=== PATIENT | female | born 1950 | race African-American/Black ===

== ENCOUNTER → 2017-02-14 | Outpatient (CLI) | payer OTHER ==
--- NOTE | ~2017-02-14 | MY29 ---
[facility] A Service of [facility] RADIOLOGY TEXT RESULTS PATIENT: ROGERIO MURPHY LOCATION: [facility] : 52 UNIT #: [id number] AGE: [address]: RIANA LEAVITT APRN SEX: F ORDER DR: [id number] [facility] [address] [place], [place] [address] [id number] O MR#: [id number] Acc #: [id number] NAME: ROGERIO MURPHY : 1950 SEX: F STUDY DATE/TIME: 02/14/2017 9:37 UNIT: [facility] ROOM: STUDY DESCRIPTION: MY WM SCREENING W/ CAD BILAT Attending Physician: Riana Leavitt Aprn Referring Physician: Geovanni Jama Aprn Ordering Physician: Physician Non-Staff Primary Care Physician: Riana Leavitt Aprn MEDICAL IMAGING REPORT This report is preliminary unless electronic signature is present EXAM Digital screening mammogram 02/14/2017. HISTORY A 66-year-old woman, positive family history, mother. Annual screening. COMPARISON STUDIES Mammograms date to 12/06/2010 with most recent 05/09/2015 FINDINGS Digital imaging of each breast was completed utilizing a two-view examination of each breast in craniocaudal and mediolateral-oblique projections. Review and interpretation of digital mammograms include a second review in conjunction with FDA-approved CAD device. There is a normal parenchymal presentation bilaterally consistent with the patient's age. There are no breast masses imaged and no parenchymal asymmetry is visualized. There are no suspicious microcalcifications and I see no focal architectural disturbance. IMPRESSION Negative screening digital mammogram. One-year followup recommended. Patients over the age of 40 are entered into a reminder system with target due date for the next mammogram. A result letter will also be sent to the patient. BIRADS: 1 Negative Dictated by... Rivera Rabago M.D. [facility] A Service of [facility] RADIOLOGY TEXT RESULTS PATIENT: ROGERIO MURPHY LOCATION: [facility] : 51 UNIT #: [id number] AGE: [address]: RIANA LEAVITT APRN SEX: F ORDER DR: THIS IS AN ELECTRONICALLY VERIFIED REPORT Rivera Rabago M.D. at 02/14/2017 1:10 PM Leida TD: 02/14/2017 12:46 JOB #: [id number] MEDICAL IMAGING REPORT Page 1 of 1 COPY
== END | disposition home or self-care (01) ==
LOC: CWCC 09:00
DX: Z12.31 Encounter for screening mammogram for malignant neoplasm of breast (principal); Z80.3 Family history of malignant neoplasm of breast
CPT/HCPCS: G0202

== ENCOUNTER → 2017-02-14 | Outpatient (CLI) | payer OTHER ==
--- NOTE | ~2017-02-14 | CR63 ---
[facility] A Service of [facility] RADIOLOGY TEXT RESULTS PATIENT: ROGERIO MURPHY LOCATION: [facility] : 51 UNIT #: [id number] AGE: [address]: RIANA LAYNE APRN SEX: F ORDER DR: [id number] [facility] [address] [place], [place] [address] [id number] O MR#: [id number] Acc #: [id number] NAME: ROGERIO MURPHY : 1950 SEX: F STUDY DATE/TIME: 02/14/2017 10:17 UNIT: [facility] ROOM: STUDY DESCRIPTION: CR Chest 2 View Attending Physician: Riana Layne Aprn Referring Physician: Riana Layne Aprn Ordering Physician: Staff Doctor Not On Primary Care Physician: Riana Layne Aprn MEDICAL IMAGING REPORT This report is preliminary unless electronic signature is present EXAM PA and lateral chest DATE 02/14/2017 HISTORY Shortness of breath, cough and congestion for 3 weeks. Diagnosed with a upper respiratory infection and bilateral pneumonia. History of uterine cancer. COMPARISON PA and lateral chest radiograph 06/07/2010. There is no more recent chest imaging study at this institution for correlation. FINDINGS Lungs are free of acute airspace disease. Stable mild generalized cardiac enlargement. Benign calcified granulomatous changes are present bilaterally. No acute osseous abnormality. No pleural effusion or pneumothorax. IMPRESSION 1. No acute chest findings. 2. stable mild cardiac enlargement. 3. Benign calcified granulomatous changes. Dictated by... Olena Murphy M.D. THIS IS AN ELECTRONICALLY VERIFIED REPORT Olena Murphy M.D. at 02/15/2017 8:32 AM LLH/rnr [facility] A Service of [facility] RADIOLOGY TEXT RESULTS PATIENT: ROGERIO MURPHY LOCATION: [facility] : 52 UNIT #: [id number] AGE: [address]: RIANA LAYNE APRN SEX: F ORDER DR: TD: 02/14/2017 15:37 JOB #: [id number] MEDICAL IMAGING REPORT Page 1 of 1 COPY
== END | disposition home or self-care (01) ==
LOC: CRAD 10:04
DX: J06.9 Acute upper respiratory infection, unspecified (principal); R05 Cough; I51.7 Cardiomegaly
CPT/HCPCS: 71020